=== PATIENT | male | born 2000 | race Caucasian/White ===

== ENCOUNTER 2019-06-07 17:12 | Emergency (ER) | payer OTHER ==
[~2019-06-07] VITALS: Ht 157.5 cm; Wt 49.9 kg
[2019-06-07] MEDS ORDERED: DOLOGEN CAPLET1 EACH PO (20:12)
== END 2019-06-07 20:16 | disposition home or self-care (01) ==
LOC: ER 17:12
DX: B34.9 Viral infection, unspecified (principal)

== ENCOUNTER 2025-04-06 04:45 | Emergency (ER) | payer OTHER ==
[~2025-04-06] VITALS: Ht 157.5 cm; Wt 59.0 kg
[~2025-04-06 04:45] MED LIST: DOLOGEN CAPLET1 EACH PO
[2025-04-06] MEDS ORDERED: KETOROLAC TROMETHAMINE 15 MG VIAL IV STA (05:40)
[2025-04-06] MEDS ORDERED: ONDANSETRON HCL 2 MG/ML VIAL IV STA (05:40)
[2025-04-06] MEDS ORDERED: FAMOTIDINE/PF 20 MG/2 ML VIAL IV PUSH STA (05:40)
[2025-04-06] MEDS ORDERED: ACETAMINOPHEN 325 MG TABLET PO STA (05:40)
[2025-04-06] MEDS ORDERED: 0.9 % SODIUM CHLORIDE 500 ML IV STA (05:40)
[2025-04-06 06:41] LABS: COVID-19 AG NEGATIVE (NEGATIVE)
[2025-04-06 07:14] LABS: BASO % 0.5 % (0.1-1.2); EOS # 0.38 (0.04-0.54); EOS % 4.3 % (0.7-7.0); LYMPH # 0.46 (1.18-3.74); LYMPH % 5.3 % (19.3-53.1); MEAN PLATELET VOLUME 11.60 fl (9.4-12.4); MONO # 0.71 (0.24-0.82); MONO % 8.1 % (4.7-12.5); NEUT # 7.12 (1.56-6.13); NEUT % 81.2 % (34.0-71.1); RED CELL DISTRIBUTION WIDTH 12.3 % (11.6-14.4)
[2025-04-06 07:47] LABS: ALT/SGPT 48.0 U/L (12-78); AST/SGOT 33.0 U/L (15-37); BILIRUBIN TOTAL 0.57 mg/dL (0.3-1.2); BUN CREA RATIO 13.0 (7.0-25.0); CREATININE SERUM 0.84 mg/dL (0.70-1.30); GFR 111.33; GLOBULINA 4.1 G/DL (2.4-3.5); GLUCOSE FASTING 108.0 mg/dL (65-100); OSMOLALITY SERUM 277.0 MOSM/KG (275-295)
== END 2025-04-06 07:39 | disposition home or self-care (01) ==
LOC: ER 04:46
PROVIDERS: General Practice
DX: J10.1 Influenza due to other identified influenza virus with other respiratory manifestations (principal); Z20.822 Contact with and (suspected) exposure to COVID-19; Z88.2 Allergy status to sulfonamides; Z91.013 Allergy to seafood